=== PATIENT | female | born 1975 | race African-American/Black ===

== ENCOUNTER 2020-04-13 17:24 | Observation (INO) | payer OTHER, SELFPAY ==
[2020-04-13] VITALS (15 sets, daily range): BP systolic 126–152; BP diastolic 83–101; PULSE 81–95; BMI 35.9
--- NOTE | 2020-04-13 16:47 | OBADM ---
This patient, Radha Kelley, admitted to the OB room [facility] for observation. Patient/family oriented to hospital policies and general routines including ID bracelet, bed and alarms, visiting hours, pain management, procedures, bathroom and other care routines, personal items, smoking policy, room service/diet, and visiting hours. Patient/Family are encouraged to report perceived risks to care and to ask questions if they do not understand what they are told or what they should do.
[2020-04-13 17:56] LABS: Basophils Percent Auto 0.2 % (0.2-1.2); Eosinophils Absolute Auto 0.1 K/mm3 (0-0.3); Eosinophils Percent Auto 0.8 % (0-4.4); Hemoglobin 12.4 g/dL (12.0-15.0); Immature Granulocyte Percent A 0.9 % (0-0.5); Lymphocytes Absolute Auto 2.33 K/mm3 (0.9-3.2); Lymphocytes Percent Auto 19.9 % (18.3-44.2); Mean Corpuscular HGB Conc 33.5 g/dl (32-36); Mean Corpuscular Hemoglobin 30.4 pg (26-34); Mean Corpuscular Volume 90.7 fl (80-100); Mean Platelet Volume 10.5 fl (7.4-10.4); Monocytes Percent Auto 8.6 % (2.6-8.5); Neutrophils Absolute Auto 8.1 K/mm3 (1.3-6.7); Neutrophils Percent Auto 69.6 % (45.5-73.1); Platelet Count Result 365 k/mm3 (150-375); Red Blood Count 4.08 M/mm3 (4.2-5.4); White Blood Count 11.7 K/mm3 (4.5-10.0)
[2020-04-13 18:07] LABS: Alanine Aminotransferase 17 U/L (4-35); Albumin Level 3.5 g/dL (3.5-5.1); Alkaline Phosphatase 92 U/L (38-126); Anion Gap 4 mmol/L (8-16); Aspartate Amino Transferase 24 U/L (14-36); Bilirubin,Total 0.3 mg/dL (0.2-1.3); Blood Urea Nitrogen 7 mg/dL (7-17); Carbon Dioxide 23 mmol/L (22-30); Chloride 106 mmol/L (98-107); Estimated Glomerular Filt Rate > 60; Glucose 92 mg/dL (65-105); Potassium 3.9 mmol/L (3.4-5.0); Sodium 133 mmol/L (137-145); Uric Acid 5.5 mg/dL (2.5-7.5)
[2020-04-13 19:09] LABS: Total Protein Urine Random 12 mg/dL
[2020-04-13] MEDS: LABETALOL HCL 100 MG TABLET 200 MG PO (19:27)
[2020-04-14] VITALS (15 sets, daily range): BP systolic 114–145; BP diastolic 59–99; PULSE 77–91; RESP 16–18; TEMP 36.3–36.8
[2020-04-14] MEDS: LABETALOL HCL 100 MG TABLET 200 MG PO ×2 (07:28→19:11)
--- NOTE | 2020-04-14 13:31 | P.HP_ITS ---
Obstetrics - Admit Note Admission Note: record reviewed. No pertinent additions to the history and/or any subsequent changes in the physical findings that are not consistent with the expected course of the were found. Additions to the history and/or subsequent changes in the physical findings follow. Patient is a 44 yo with IUP at 23 5/7 here from [facility] due to IUGR with EFW at 4%. BP was also elevated. Patient began on Labetalol. PIH labs done and normal. 24 hour urine in progress. Hx of CHTN but no meds needed. BPs in office so far 120's/70's. Continue observation of BP and bedrest until 24 hour urine resulted.
[2020-04-14 19:24] LABS: Collection Time Urine 24 HOURS
[2020-04-14 19:26] LABS: Patient Weight 196 Lbs; Total Volume 24 Hour Urine 2700 ml
[2020-04-14 19:30] LABS: Specific Gravity Ur 1.008
[2020-04-14 19:41] LABS: Creatinine Clearance Urine 119.8 ml/min (75-125); Creatinine Urine 55.8 mg/dL
[2020-04-15 02:30] VITALS: TEMP 36.4
[2020-04-15 05:00] VITALS: TEMP 36.6
[2020-04-15 05:14] VITALS: BP 119/79; PULSE 82
[2020-04-15 06:42] VITALS: BP 132/92; PULSE 90; RESP 16; TEMP 36.6
[2020-04-15 07:53] LABS: Total Protein Urine 24 Hr 178 mg/24hr (0-149); Total Protein Urine Random 6.6 mg/dL (0.0-11.9)
--- NOTE | 2020-04-15 08:01 | PC.NURSE ---
Dr. Young returned page and informed of 24 hr urine results, BP this morning 132/92, BP's during the night and trend of DBP starting to increase a couple of hours before next dose of Labetalol is due. Order received to give a dose now and then change to TID. would like Dr. Stein to round on pt. Informed I think Dr. Stein did see her earlier this am before results were available. To call Dr. Stein for discharge orders.
--- NOTE | 2020-04-15 08:05 | PC.NURSE ---
Dr. Stein returned page and informed Dr. Young just increased pt's Labetalol to TID. Informed of [address] Young wanted to make sure Dr. Stein rounded on pt before discharge. Dr. Stein confirms she did see pt this morning. Order for discharge, Labetalol RX, and limited activity received.
[2020-04-15 08:12] VITALS: BP 136/90; PULSE 88
[2020-04-15] MEDS: LABETALOL HCL 100 MG TABLET 200 MG PO (08:12)
--- NOTE | 2020-05-09 11:01 | PM.OBTRLD ---
OB - Triage/Final Diagnosis Evaluation Laboratory results: Laboratory Tests 04/13/20 04/13/20 04/13/20 17:48 17:48 18:53 WBC 11.7 H RBC 4.08 L Hgb 12.4 Hct 37.0 MCV 90.7 MCH 30.4 MCHC 33.5 RDW 14.0 Plt Count 365 MPV 10.5 H Immature Gran % (Auto) 0.9 H Neut % (Auto) 69.6 Lymph % (Auto) 19.9 [place] % (Auto) 8.6 H Eos % (Auto) 0.8 Baso % (Auto) 0.2 Lymph # (Auto) 2.33 [place] # (Auto) 1.0 H Eos # (Auto) 0.1 Baso # (Auto) 0.0 Abs Immat Gran (auto) 0.10 H Absolute Neuts (auto) 8.1 H Absolute Nucleated RBC 0.0 Nucleated RBC % 0.0 Sodium 133 L Potassium 3.9 Chloride 106 Carbon Dioxide 23 Anion Gap 4 L BUN 7 Creatinine 0.80 Estim Creat Clear Calc Not Reportable Estimated GFR > 60 Glucose 92 Uric Acid 5.5 Calcium 9.0 Total Bilirubin 0.3 AST 24 ALT 17 Alkaline Phosphatase 92 Total Protein 7.0 Albumin 3.5 Urine Color Urine Appearance Urine pH Ur Specific [place] Urine Protein Urine Glucose (UA) Urine Ketones Ur Blood (Man) Urine Nitrate Urine Bilirubin Urine Urobilinogen Ur Leukocyte Esterase Urine RBC Urine WBC Urine WBC Clumps Ur Squamous Epith Cells Ur Transition Epith Cell Ur Renal Epithelial Cell [place] Biurate Crystals Calcium Carbonate Cryst Calcium Phosphate Cryst Calcium Oxalate Crystal Leucine Crystals Cystine Crystals Uric Acid Crystals Triple Phos Crystals Sulfonamide Crystals Cholesterol Crystals Tyrosine Crystals Hippuric Acid Crystals Amorphous Sediment Other Sediment Urine Bacteria Cellular Casts Epithelial Casts Fatty Casts Hyaline Casts Granular Casts Waxy Casts RBC Casts WBC Casts Urine Starch Urine Mucus Urine Trichomonas Urine Yeast (Budding) Ur Oval Fat Bodies U Random Total Protein 12 Ur 24 Hour Volume Urine Creatinine 106.0 Creatinine Clearance Ur Total Protein 24 Hr 04/13/20 04/14/20 19:03 19:02 WBC RBC Hgb Hct MCV MCH MCHC RDW Plt Count MPV Immature Gran % (Auto) Neut % (Auto) Lymph % (Auto) [place] % (Auto) Eos % (Auto) Baso % (Auto) Lymph # (Auto) [place] # (Auto) Eos # (Auto) Baso # (Auto) Abs Immat Gran (auto) Absolute Neuts (auto) Absolute Nucleated RBC Nucleated RBC % Sodium Potassium Chloride Carbon Dioxide Anion Gap BUN Creatinine Estim Creat Clear Calc Estimated GFR Glucose Uric Acid Calcium Total Bilirubin AST ALT Alkaline Phosphatase Total Protein Albumin Urine Color Cancelled Urine Appearance Cancelled Urine pH Cancelled Ur Specific [place] Cancelled Urine Protein Cancelled Urine Glucose (UA) Cancelled Urine Ketones Cancelled Ur Blood (Man) Cancelled Urine Nitrate Cancelled Urine Bilirubin Cancelled Urine Urobilinogen Cancelled Ur Leukocyte Esterase Cancelled Urine RBC Cancelled Urine WBC Cancelled Urine WBC Clumps Cancelled Ur Squamous Epith Cells Cancelled Ur Transition Epith Cell Cancelled Ur Renal Epithelial Cell Cancelled [place] Biurate Crystals Cancelled Calcium Carbonate Cryst Cancelled Calcium Phosphate Cryst Cancelled Calcium Oxalate Crystal Cancelled Leucine Crystals Cancelled Cystine Crystals Cancelled Uric Acid Crystals Cancelled Triple Phos Crystals Cancelled Sulfonamide Crystals Cancelled Cholesterol Crystals Cancelled Tyrosine Crystals Cancelled Hippuric Acid Crystals Cancelled Amorphous Sediment Cancelled Other Sediment Cancelled Urine Bacteria Cancelled Cellular Casts Cancelled Epithelial Casts Cancelled Fatty Casts Cancelled Hyaline Casts Cancelled Granular Casts Cancelled Waxy Casts Cancelled RBC Casts Cancelled WBC Casts Cancelled Urine Starch Cancelled Urine M
== END 2020-04-15 08:48 | disposition home or self-care (01) ==
LOC: ANHOBOP 04-18 10:51 → ANHOBPP 04-18 17:02
PROVIDERS: Obstetrics & Gynecology Gynecology; Admitting Provider Obstetrics & Gynecology; Visit Provider Obstetrics & Gynecology
DX: O10.912 Unspecified pre-existing hypertension complicating pregnancy, second trimester (principal); O36.5920 Maternal care for other known or suspected poor fetal growth, second trimester, not applicable or unspecified; Z3A.23 23 weeks gestation of pregnancy
CPT/HCPCS: 36415; 80053; 81050; 82570; 82575; 84156; 84550; 85025; 99199; A9270; G0378; G0379

== ENCOUNTER 2020-04-21 17:08 | Observation (INO) | payer OTHER, SELFPAY ==
[2020-04-21] VITALS (19 sets, daily range): BP systolic 125–147; BP diastolic 84–98; PULSE 81–94; RESP 18–20; TEMP 36.3–36.6; O2SAT 98; BMI 36.6
--- NOTE | ~2020-04-21 | US_ITS ---
EXAMINATION: US OB limited w BPP, US umbilical doppler DATE: 04/21/2020 14:12 INDICATION: -induced hypertension. Assess biophysical profile, amniotic fluid index and umbi lical artery Dopplers. TECHNIQUE: Real-time pelvic ultrasound was performed. The interpreting radiologist was not present fo r the study. COMPARISON: None. FINDINGS: There is a single living fetus in vertex presentation. The placenta is anterior. heart rate is 157 beats per minute (bpm). Amniotic fluid index measures 7.5 cm which is (2.5th%-97.5%: 9.0-23.8 at 25 weeks estimated gestational age) Biophysical profile performed by the technologist: breathing (30 sec sustained breathing in 30 minutes): 2 out of 2 movement (3 gross body movements in 30 minutes): 2 out of 2 tone (one episode of lneojjd-atzodczop-kubvihc limb movement): 2 out of 2 Amniotic fluid pocket (2 cm): 2 out of 2 Total score: 8 out of 8 The umbilical artery demonstrates a peak systolic and diastolic velocity ratio of 3.4-4.4at the fetus , 2.0-4.1 in the mid cord and 3.8-3.3 near the placenta (5th%-95%: 2.6-5.3 at 25 weeks). IMPRESSION: 1. Single living fetus in vertex presentation with heart rate of 157 bpm. 2. Oligohydramnios with amniotic fluid index of 7.5 cm which is greater than 3 standard deviations be low the mean 3. Biophysical profile 8 out of 8. 4. Normal umbilical arterial Dopplers with normal peak systolic to diastolic ratios. Reviewed, dictated and finalized at location B. IMPRESSION: 1. Single living fetus in vertex presentation with heart rate of 157 bpm. 2. Oligohydramnios with amniotic fluid index of 7.5 cm which is greater than 3 standard deviations below the mean 3. Biophysical profile 8 out of 8. 4. Normal umbilical arterial Dopplers with normal peak systolic to diastolic ra tios.
[2020-04-21 12:29] LABS: Basophils Percent Auto 0.3 % (0.2-1.2); Eosinophils Absolute Auto 0.1 K/mm3 (0-0.3); Eosinophils Percent Auto 0.6 % (0-4.4); Hematocrit 35.8 % (37.0-47.0); Hemoglobin 12.1 g/dL (12.0-15.0); Immature Granulocyte Percent A 1.7 % (0-0.5); Lymphocytes Absolute Auto 2.32 K/mm3 (0.9-3.2); Lymphocytes Percent Auto 20.2 % (18.3-44.2); Mean Corpuscular HGB Conc 33.8 g/dl (32-36); Mean Corpuscular Hemoglobin 30.2 pg (26-34); Mean Corpuscular Volume 89.3 fl (80-100); Mean Platelet Volume 10.3 fl (7.4-10.4); Monocytes Absolute Auto 1.2 K/mm3 (0.1-0.6); Monocytes Percent Auto 10.4 % (2.6-8.5); Neutrophils Absolute Auto 7.7 K/mm3 (1.3-6.7); Neutrophils Percent Auto 66.8 % (45.5-73.1); Platelet Count Result 386 k/mm3 (150-375); Red Blood Count 4.01 M/mm3 (4.2-5.4); Red Cell Distribution Width 13.4 % (11.5-14.5); White Blood Count 11.5 K/mm3 (4.5-10.0)
[2020-04-21 12:37] LABS: Alanine Aminotransferase 24 U/L (4-35); Albumin Level 3.5 g/dL (3.5-5.1); Alkaline Phosphatase 97 U/L (38-126); Anion Gap 5 mmol/L (8-16); Aspartate Amino Transferase 32 U/L (14-36); Bilirubin,Total 0.2 mg/dL (0.2-1.3); Blood Urea Nitrogen 10 mg/dL (7-17); Calcium 9.2 mg/dL (8.4-10.2); Carbon Dioxide 23 mmol/L (22-30); Chloride 106 mmol/L (98-107); Estimated Glomerular Filt Rate > 60; Glucose 74 mg/dL (65-105); Potassium 3.9 mmol/L (3.4-5.0); Sodium 134 mmol/L (137-145); Uric Acid 5.8 mg/dL (2.5-7.5)
[2020-04-21 12:38] LABS: Add Urine Microscopic? YES; Appearance Urine Cloudy (Clear); Bacteria Urine 1+ /hpf; Bilirubin Urine Negative (Negative); Blood Urine Negative (Negative); Color Urine Yellow (Yellow); Glucose Urine UA Negative (Negative); Ketones Urine Negative (Negative); Leukocyte Esterase Ur 1+ LEU/UL (NEGATIVE); Mucus Urine Rare /lpf; Nitrate Urine Negative (Negative); Protein Urine 1+ mg/dL (Negative); Specific Grav Ur 1.018 (1.001-1.035); Squamous Epithelial Cell Urine Many /hpf (Few); Urobilinogen Urine Negative mg/dL (<2.0); WBC Urine 21-30 /hpf (0-3)
[2020-04-21] MEDS: BETAMETHASONE SOD PHOS/ACETATE 30 MG/5 ML VIAL 12 MG IM (17:43)
--- NOTE | 2020-04-22 00:06 | PC.NURSE ---
SEE OBIX DOCUMENTATION>
--- NOTE | 2020-04-22 00:34 | PM.TDS ---
Transfer Discharge Sum: Prov Provider Date of admission: 04/21/20 17:08 Primary care physician: [facility] PHYSICIAN Admitting clinician: Va Young MD DS: Admitting Diagnosis Admitting Diagnosis Admitting Diagnosis: pih evaluation oligohydramnios DS: Discharge Diagnosis Discharge Diagnosis (1) heart deceleration: Status: Acute Transfer Discharge Sum: Med Medications Active and Home Medications: Home Medications PNV [id number] [] 1 tablet PO DAILY 04/15/20 [History Confirmed 04/21/20] labetalol 300 mg PO Q8HR 04/21/20 [History Confirmed 04/21/20] Active Medications Betamethasone Acet/Betameth SodPhos (Celestone-Soluspan) 12 mg IM Q24H [facility] Stop: 04/22/20 18:00 Last Admin: 04/21/20 17:43 Dose: 12 mg Documented by: Labetalol HCl (Trandate) 300 mg PO Q8HR [facility] Transfer Discharge Sum: Hosp Hospital Course Hospital course: Radha Kelley is a 44 year old female Time Spent with Patient Time attestation: Total time spent providing and/or coordinating transfer services: DS: Data Data Completed and Pending Labs on day of discharge: Labs from last 24 hours 04/21/20 04/21/20 04/21/20 12:10 12:10 12:10 WBC 11.5 H RBC 4.01 L Hgb 12.1 Hct 35.8 L MCV 89.3 MCH 30.2 MCHC 33.8 RDW 13.4 Plt Count 386 H MPV 10.3 Immature Gran % (Auto) 1.7 H Neut % (Auto) 66.8 Lymph % (Auto) 20.2 [place] % (Auto) 10.4 H Eos % (Auto) 0.6 Baso % (Auto) 0.3 Lymph # (Auto) 2.32 [place] # (Auto) 1.2 H Eos # (Auto) 0.1 Baso # (Auto) 0.0 Abs Immat Gran (auto) 0.20 H Absolute Neuts (auto) 7.7 H Absolute Nucleated RBC 0.0 Nucleated RBC % 0.0 Sodium 134 L Potassium 3.9 Chloride 106 Carbon Dioxide 23 Anion Gap 5 L BUN 10 Creatinine 0.90 Estim Creat Clear Calc Not Reportable Estimated GFR > 60 Glucose 74 Uric Acid 5.8 Calcium 9.2 Total Bilirubin 0.2 AST 32 ALT 24 Alkaline Phosphatase 97 Total Protein 7.0 Albumin 3.5 Urine Color Urine Appearance Urine pH Ur Specific [place] Urine Protein Urine Glucose (UA) Urine Ketones Ur Blood (Man) Urine Nitrate Urine Bilirubin Urine Urobilinogen Ur Leukocyte Esterase Urine RBC Urine WBC Ur Squamous Epith Cells Urine Bacteria Urine Mucus U Random Total Protein Cancelled Urine Creatinine Cancelled 04/21/20 12:10 WBC RBC Hgb Hct MCV MCH MCHC RDW Plt Count MPV Immature Gran % (Auto) Neut % (Auto) Lymph % (Auto) [place] % (Auto) Eos % (Auto) Baso % (Auto) Lymph # (Auto) [place] # (Auto) Eos # (Auto) Baso # (Auto) Abs Immat Gran (auto) Absolute Neuts (auto) Absolute Nucleated RBC Nucleated RBC % Sodium Potassium Chloride Carbon Dioxide Anion Gap BUN Creatinine Estim Creat Clear Calc Estimated GFR Glucose Uric Acid Calcium Total Bilirubin AST ALT Alkaline Phosphatase Total Protein Albumin Urine Color Yellow Urine Appearance Cloudy H Urine pH 6.0 Ur Specific [place] 1.018 Urine Protein 1+ H Urine Glucose (UA) Negative Urine Ketones Negative Ur Blood (Man) Negative Urine Nitrate Negative Urine Bilirubin Negative Urine Urobilinogen Negative Ur Leukocyte Esterase 1+ H Urine RBC 3-5 H Urine WBC 21-30 H Ur Squamous Epith Cells Many H Urine Bacteria 1+ H Urine Mucus Rare U Random Total Protein Urine Creatinine
[2020-04-22 01:45] VITALS: BP 135/93; PULSE 91
--- NOTE | 2020-04-22 02:17 | PC.NURSE ---
Pt transferred to [place] per ambulance with transport team.
== END 2020-04-22 01:50 | disposition short-term general hospital (02) ==
LOC: ANHOBOP 17:08 → ANHOBPP 04-26 12:14
PROVIDERS: Admitting Provider Obstetrics & Gynecology Gynecology; Visit Provider Obstetrics & Gynecology
DX: O36.8390 Maternal care for abnormalities of the fetal heart rate or rhythm, unspecified trimester, not applicable or unspecified (principal); O13.9 Gestational [pregnancy-induced] hypertension without significant proteinuria, unspecified trimester; O41.00X0 Oligohydramnios, unspecified trimester, not applicable or unspecified; Z3A.00 Weeks of gestation of pregnancy not specified
CPT/HCPCS: 36415; 76815; 76819; 76820; 80053; 81001; 84550; 85025; 87077; 87086; 87088; 96372; G0378; G0379; J0702